=== PATIENT | female | born 1945 | race Caucasian/White ===

== ENCOUNTER 2019-02-26 18:26 | Emergency (ER) | payer OTHER, MEDICAID | END 2019-02-26 23:30 | disposition home or self-care (01) | LOC: M.ERS 18:26 | DX: L03.116 Cellulitis of left lower limb (principal); R52 Pain, unspecified; F10.10 Alcohol abuse, uncomplicated; F41.9 Anxiety disorder, unspecified; F32.9 Major depressive disorder, single episode, unspecified; F43.10 Post-traumatic stress disorder, unspecified; Z88.6 Allergy status to analgesic agent; Z88.2 Allergy status to sulfonamides ==